=== PATIENT | female | born 1955 | race African-American/Black ===

== ENCOUNTER 2017-05-16 14:44 | Inpatient (IN) ==
[2017-05-16 17:38] LABS: Basophils % 0.4 % (0.0-0.8); Eosinophils % 0.3 % (0.00-10.9); Hematocrit 49.1 VOL% (35.7-47.0); Hemoglobin 17.5 GM/DL (12.0-16.0); Immature Granulocytes % 0.5 %; Immature Granulocytes Absolute 0.05 #; Lymphocytes # 1.1 10*3/uL (1.4-4.0); Lymphocytes % 11.3 % (21.3-54.2); Mean Corpuscular HGB Conc 35.6 GM/DL (32-36); Mean Corpuscular Hemoglobin 34 PG (27-34); Mean Corpuscular Volume 95.2 FL (87-102); Monocytes # 0.7 10*3/uL (0.11-0.8); Monocytes % 7.1 % (1.7-12.7); Neutrophils # 7.9 10*3/uL (1.4-7.4); Neutrophils % 80.4 % (38.7-73.9); Platelet Count 568 T/CUMM (130-400); Red Blood Count 5.16 MC/CUMM (3.8-5.5); Red Cell Distribution Width 14.4 % (9.3-17.3); White Blood Count 9.8 T/CUMM (4-12)
[2017-05-16 17:56] LABS: Apearance,Urine Slightly Hazy (Clear); Bacteria,Urine Many /HPF (Few); Bilirubin,Urine Negative (Negative); Blood, Urine Negative (Negative); Glucose,Urine (UA) Negative (Negative); Hyaline Casts,Urine 40 /LPF (0-3); Ketones,Urine 20 mg/dL (Negative); Nitrite,Urine Negative (Negative); Protein,Urine 30 MG/DL; RBC,Urine 1 /HPF (0-4); Squamous Epithelial Cell,Urine Occasional /HPF (0-10); Urine Color Yellow (Yellow); Urine Specific Gravity 1.012 (1.001-1.035); Urine Urobilinogen < 2.0 EU/DL (0.2-1.0); WBC,Urine 7 /HPF (0-6)
[2017-05-16 18:31] LABS: Calcium 9.2 MG/DL (8.5-10.1); Magnesium 1.7 MG/DL (1.8-2.4); Osmolality,Calculated 263.2 MOS/KG (273-304); Potassium 5.5 MMOL/L (3.5-5.1)
[2017-05-16] MEDS ORDERED: LABETALOL 20 MG/4 ML SYRINGE IV PRN (21:10)
[2017-05-16 22:06] LABS: Cholesterol 143 MG/DL (50-200); HDL Cholesterol 76 MG/DL (40-60); Risk Ratio 1.88; Triglycerides 73 MG/DL (2-150); Troponin I Only < 0.015 NG/ML (0.00-0.045); VLDL CHOLESTEROL 14.6 MG/DL
[2017-05-16 22:22] LABS: Barbiturates Screen,Urine Negative (Negative); Benzodiazepines Screen,Urine Negative (Negative); Cannabinoid Screen,Urine Negative (Negative); Opiate Screen,Urine Negative (Negative); Phencyclidine Screen,Urine Negative (Negative)
[2017-05-16] MEDS ORDERED: ALBUTEROL/IPRATROPIUM 3 ML NEB RESP TX PRN (22:33)
[2017-05-17] MEDS: SODIUM CHLORIDE 0.9% 1,000 ML IV SCH ×2 (01:19→15:03)
[2017-05-17] MEDS: LEVOTHYROXINE 50 MCG TABLET PO SCH (06:09)
[2017-05-17 06:31] LABS: Basophils % 0.6 % (0.0-0.8); Eosinophils # 0.1 10*3/uL (0.0-0.87); Eosinophils % 2.1 % (0.00-10.9); Hematocrit 42.7 VOL% (35.7-47.0); Hemoglobin 15.4 GM/DL (12.0-16.0); Immature Granulocytes % 0.5 %; Immature Granulocytes Absolute 0.03 #; Lymphocytes # 1.7 10*3/uL (1.4-4.0); Lymphocytes % 25.9 % (21.3-54.2); Mean Corpuscular HGB Conc 36.1 GM/DL (32-36); Mean Corpuscular Hemoglobin 34 PG (27-34); Mean Corpuscular Volume 95.3 FL (87-102); Mean Platelet Volume 10.1 FL (9.6-12.0); Monocytes # 0.6 10*3/uL (0.11-0.8); Monocytes % 8.3 % (1.7-12.7); Neutrophils # 4.1 10*3/uL (1.4-7.4); Neutrophils % 62.6 % (38.7-73.9); Platelet Count 592 T/CUMM (130-400); Red Blood Count 4.48 MC/CUMM (3.8-5.5); Red Cell Distribution Width 14.6 % (9.3-17.3); White Blood Count 6.6 T/CUMM (4-12)
[2017-05-17 06:58] LABS: Calcium 8.2 MG/DL (8.5-10.1); Magnesium 1.6 MG/DL (1.8-2.4); Osmolality,Calculated 272.5 MOS/KG (273-304); Potassium 4.2 MMOL/L (3.5-5.1)
[2017-05-17] MEDS: ASPIRIN EC 81 MG TABLET PO SCH (09:21)
[2017-05-17] MEDS: NICOTINE 14 MG/24 HR PATCH TRANSDERM SCH (09:22)
[2017-05-17] MEDS: cefTRIAXone 1,000 MG in SYRINGE 1 EACH IV SCH (09:27)
[2017-05-17] MEDS ORDERED: MAGNESIUM SULF RIDER 4 GM in PREMIX 1 EACH IV PRN (12:16)
[2017-05-17] MEDS ORDERED: MAGNESIUM SULF RIDER 2 GM in PREMIX 1 EACH IV PRN (12:16)
[2017-05-17] MEDS: APIXABAN 2.5 MG TABLET PO SCH ×2 (15:05→22:16)
[2017-05-17] MEDS: LISINOPRIL 5 MG TABLET PO SCH (15:11)
[2017-05-17] MEDS: ACETAMINOPHEN 325 MG TABLET PO PRN (15:20)
[2017-05-17] MEDS ORDERED: APIXABAN 2.5 MG TABLET PO SCH (21:00)
[2017-05-17] MEDS ORDERED: ATORVASTATIN 10 MG TABLET PO SCH (21:00)
[2017-05-18] MEDS: ACETAMINOPHEN 325 MG TABLET PO PRN ×2 (04:01→08:54)
[2017-05-18] MEDS: SODIUM CHLORIDE 0.9% 1,000 ML IV SCH (04:02)
[2017-05-18] MEDS: LEVOTHYROXINE 50 MCG TABLET PO SCH (06:16)
[2017-05-18 08:43] VITALS: BP 139/89
[2017-05-18] MEDS: ASPIRIN EC 81 MG TABLET PO SCH (08:53)
[2017-05-18] MEDS: LISINOPRIL 5 MG TABLET PO SCH (08:53)
[2017-05-18] MEDS: NICOTINE 14 MG/24 HR PATCH TRANSDERM SCH (08:54)
[2017-05-18] MEDS: APIXABAN 2.5 MG TABLET PO SCH (08:54)
[2017-05-18] MEDS: cefTRIAXone 1,000 MG in SYRINGE 1 EACH IV SCH (08:55)
== END 2017-05-18 10:55 | disposition home or self-care (01) | DRG 65 ==
LOC: N.ED 14:44 → N.EDINP 21:10 → SUATTDRO 21:10 → N.TELEN 21:45
PROVIDERS: ADMIT Family Medicine; ATTEND Internal Medicine Infectious Disease

== ENCOUNTER 2017-05-26 12:10 | Inpatient (IN) ==
[2017-05-26] MEDS ORDERED: ONDANSETRON 4 MG/2 ML VIAL IV PRN (13:29)
[2017-05-26] MEDS: CARVEDILOL 12.5 MG TABLET PO SCH ×2 (14:38→21:38)
[2017-05-26] MEDS: methylPREDNISolone SOD SUC 125 MG/2 ML VIAL IV SCH ×2 (14:38→21:37)
[2017-05-26] MEDS: PANTOPRAZOLE 40 MG TABLET PO SCH (14:38)
[2017-05-26] MEDS: SODIUM CHLORIDE 0.45% 1,000 ML IV SCH (14:56)
[2017-05-26 15:12] LABS: Albumin 4.1 G/DL (3.4-5.0); Bilirubin,Total 0.8 MG/DL (0.2-1.0); Calcium 9.2 MG/DL (8.5-10.1); Osmolality,Calculated 271.5 MOS/KG (273-304); Potassium 4.2 MMOL/L (3.5-5.1); Total Protein 6.9 G/DL (6.4-8.3)
[2017-05-26 16:05] LABS: Basophils % 0.3 % (0.0-0.8); Eosinophils # 0.1 10*3/uL (0.0-0.87); Eosinophils % 2.3 % (0.00-10.9); Hematocrit 42.4 VOL% (35.7-47.0); Hemoglobin 15.1 GM/DL (12.0-16.0); Immature Granulocytes % 0.6 %; Immature Granulocytes Absolute 0.04 #; Lymphocytes # 1.3 10*3/uL (1.4-4.0); Lymphocytes % 20.4 % (21.3-54.2); Mean Corpuscular HGB Conc 35.6 GM/DL (32-36); Mean Corpuscular Hemoglobin 34 PG (27-34); Mean Corpuscular Volume 95.3 FL (87-102); Mean Platelet Volume 10.6 FL (9.6-12.0); Monocytes # 0.4 10*3/uL (0.11-0.8); Neutrophils # 4.4 10*3/uL (1.4-7.4); Neutrophils % 70.4 % (38.7-73.9); Platelet Count 376 T/CUMM (130-400); Red Blood Count 4.45 MC/CUMM (3.8-5.5); Red Cell Distribution Width 14.4 % (9.3-17.3); White Blood Count 6.2 T/CUMM (4-12)
[2017-05-26 16:28] LABS: Platelet Estimate Normal
[2017-05-26] MEDS ORDERED: diphenhydrAMINE 50 MG/1 ML VIAL IV SCH (18:00)
[2017-05-26] MEDS: MOISTURIZING CREAM (EUCERIN) 113 GM JAR TOP SCH ×2 (18:37→21:38)
[2017-05-26] MEDS: ACETAMINOPHEN 325 MG TABLET PO PRN (21:38)
[2017-05-26] MEDS: FEXOFENADINE 60 MG TABLET PO SCH (21:38)
[2017-05-27 03:41] LABS: Apearance,Urine Slightly Hazy (Clear); Bilirubin,Urine Negative (Negative); Blood, Urine Negative (Negative); Glucose,Urine (UA) Negative (Negative); Ketones,Urine Negative (Negative); Mucus,Urine Occasional /LPF (Occasional); Nitrite,Urine Negative (Negative); Protein,Urine Negative; Squamous Epithelial Cell,Urine Occasional /HPF (0-10); Urine Color Yellow (Yellow); Urine Specific Gravity 1.023 (1.001-1.035); Urine Urobilinogen < 2.0 EU/DL (0.2-1.0); WBC,Urine 1 /HPF (0-6)
[2017-05-27] MEDS: methylPREDNISolone SOD SUC 125 MG/2 ML VIAL IV SCH ×3 (05:24→16:55)
[2017-05-27 05:25] LABS: Basophils % 0.1 % (0.0-0.8); Hematocrit 40.2 VOL% (35.7-47.0); Hemoglobin 14.3 GM/DL (12.0-16.0); Immature Granulocytes % 0.5 %; Immature Granulocytes Absolute 0.05 #; Lymphocytes # 1.1 10*3/uL (1.4-4.0); Lymphocytes % 11.4 % (21.3-54.2); Mean Corpuscular HGB Conc 35.6 GM/DL (32-36); Mean Corpuscular Hemoglobin 34 PG (27-34); Mean Corpuscular Volume 94.6 FL (87-102); Mean Platelet Volume 9.7 FL (9.6-12.0); Monocytes # 0.1 10*3/uL (0.11-0.8); Monocytes % 0.9 % (1.7-12.7); Neutrophils % 87.1 % (38.7-73.9); Platelet Count 872 T/CUMM (130-400); Red Blood Count 4.25 MC/CUMM (3.8-5.5); Red Cell Distribution Width 14.5 % (9.3-17.3); White Blood Count 9.2 T/CUMM (4-12)
[2017-05-27 05:56] LABS: Albumin 3.6 G/DL (3.4-5.0); Calcium 8.4 MG/DL (8.5-10.1); Osmolality,Calculated 273.7 MOS/KG (273-304); Phosphorous 4.1 MG/DL (2.5-4.9); Potassium 4.2 MMOL/L (3.5-5.1)
[2017-05-27 07:12] LABS: Anti SS-A Antibodies < 16 EU/ML; Anti SS-B Antibodies < 16 EU/ML
[2017-05-27] MEDS: LEVOTHYROXINE 50 MCG TABLET PO SCH (07:22)
[2017-05-27 08:48] LABS: Hypochromasia 1+; Lymphocytes 7 % (20-55); Segmented Neutrophils 92 % (50-85); Total Cells Counted 100
[2017-05-27 08:49] LABS: Platelet Estimate Increased
[2017-05-27] MEDS: APIXABAN 2.5 MG TABLET PO SCH ×2 (09:04→20:52)
[2017-05-27] MEDS: MOISTURIZING CREAM (EUCERIN) 113 GM JAR TOP SCH ×3 (09:04→20:55)
[2017-05-27] MEDS: CARVEDILOL 12.5 MG TABLET PO SCH ×2 (09:04→20:53)
[2017-05-27] MEDS: FEXOFENADINE 60 MG TABLET PO SCH ×2 (09:04→20:51)
[2017-05-27] MEDS: ASPIRIN EC 81 MG TABLET PO SCH (09:04)
[2017-05-27] MEDS: PANTOPRAZOLE 40 MG TABLET PO SCH (09:04)
[2017-05-27] MEDS: ACETAMINOPHEN 325 MG TABLET PO PRN ×2 (09:32→20:51)
[2017-05-27] MEDS: SODIUM CHLORIDE 0.45% 1,000 ML IV SCH (14:51)
[2017-05-28] MEDS: methylPREDNISolone SOD SUC 125 MG/2 ML VIAL IV SCH ×3 (00:08→16:05)
[2017-05-28 03:44] LABS: Collection Time,Urine 24 HOURS; Total Protein 24 Hr Ur Result 104 MG/24HR (0-149.1); Total Volume,Urine 800 ML (400-2000)
[2017-05-28 04:00] LABS: Creatinine 24 Hr Urine Result 0.6 G/24HR (0.60-1.80)
[2017-05-28] MEDS: LEVOTHYROXINE 50 MCG TABLET PO SCH (07:05)
[2017-05-28 07:33] LABS: Basophils % 0.1 % (0.0-0.8); Hematocrit 40.1 VOL% (35.7-47.0); Hemoglobin 14.5 GM/DL (12.0-16.0); Immature Granulocytes % 1.5 %; Lymphocytes # 0.9 10*3/uL (1.4-4.0); Lymphocytes % 4.5 % (21.3-54.2); Mean Corpuscular HGB Conc 36.2 GM/DL (32-36); Mean Corpuscular Hemoglobin 34 PG (27-34); Mean Corpuscular Volume 95.2 FL (87-102); Mean Platelet Volume 9.8 FL (9.6-12.0); Monocytes # 0.3 10*3/uL (0.11-0.8); Monocytes % 1.6 % (1.7-12.7); Neutrophils # 18.1 10*3/uL (1.4-7.4); Neutrophils % 92.3 % (38.7-73.9); Platelet Count 903 T/CUMM (130-400); Red Blood Count 4.21 MC/CUMM (3.8-5.5); Red Cell Distribution Width 14.6 % (9.3-17.3); White Blood Count 19.6 T/CUMM (4-12)
[2017-05-28 07:56] LABS: Hypochromasia 1+; Lymphocytes 3 % (20-55); Segmented Neutrophils 95 % (50-85); Total Cells Counted 100
[2017-05-28 07:57] LABS: Platelet Estimate Increased
[2017-05-28] MEDS: PANTOPRAZOLE 40 MG TABLET PO SCH (09:52)
[2017-05-28] MEDS: ASPIRIN EC 81 MG TABLET PO SCH (09:52)
[2017-05-28] MEDS: FEXOFENADINE 60 MG TABLET PO SCH ×2 (09:52→20:21)
[2017-05-28] MEDS: CARVEDILOL 12.5 MG TABLET PO SCH ×2 (09:52→20:21)
[2017-05-28] MEDS: MOISTURIZING CREAM (EUCERIN) 113 GM JAR TOP SCH ×3 (09:52→20:56)
[2017-05-28] MEDS: APIXABAN 2.5 MG TABLET PO SCH ×2 (09:52→20:21)
[2017-05-28] MEDS: ACETAMINOPHEN 325 MG TABLET PO PRN (13:41)
[2017-05-28] MEDS: SODIUM CHLORIDE 0.45% 1,000 ML IV SCH (16:06)
[2017-05-29] MEDS: LEVOTHYROXINE 50 MCG TABLET PO SCH (06:25)
[2017-05-29 08:39] LABS: Basophils % 0.1 % (0.0-0.8); Eosinophils % 0.1 % (0.00-10.9); Hematocrit 40.2 VOL% (35.7-47.0); Hemoglobin 14.4 GM/DL (12.0-16.0); Immature Granulocytes % 1.5 %; Immature Granulocytes Absolute 0.27 #; Lymphocytes # 1.2 10*3/uL (1.4-4.0); Mean Corpuscular HGB Conc 35.8 GM/DL (32-36); Mean Corpuscular Hemoglobin 34 PG (27-34); Mean Corpuscular Volume 94.8 FL (87-102); Mean Platelet Volume 9.6 FL (9.6-12.0); Monocytes % 5.6 % (1.7-12.7); Neutrophils # 15.1 10*3/uL (1.4-7.4); Neutrophils % 85.7 % (38.7-73.9); Platelet Count 899 T/CUMM (130-400); Red Blood Count 4.24 MC/CUMM (3.8-5.5); Red Cell Distribution Width 14.5 % (9.3-17.3); White Blood Count 17.7 T/CUMM (4-12)
[2017-05-29] MEDS: CARVEDILOL 12.5 MG TABLET PO SCH ×2 (08:45→21:42)
[2017-05-29] MEDS: FEXOFENADINE 60 MG TABLET PO SCH ×2 (08:45→21:42)
[2017-05-29] MEDS: ASPIRIN EC 81 MG TABLET PO SCH (08:45)
[2017-05-29] MEDS: PANTOPRAZOLE 40 MG TABLET PO SCH (08:45)
[2017-05-29] MEDS: predniSONE 20 MG TABLET PO SCH (08:45)
[2017-05-29] MEDS: APIXABAN 2.5 MG TABLET PO SCH ×2 (08:45→21:42)
[2017-05-29] MEDS: MOISTURIZING CREAM (EUCERIN) 113 GM JAR TOP SCH ×3 (08:46→21:42)
[2017-05-29] MEDS: ACETAMINOPHEN 325 MG TABLET PO PRN (17:11)
[2017-05-29] MEDS: SODIUM CHLORIDE 0.45% 1,000 ML IV SCH (18:01)
[2017-05-30 04:42] LABS: Basophils % 0.2 % (0.0-0.8); Eosinophils % 0.1 % (0.00-10.9); Hematocrit 38.5 VOL% (35.7-47.0); Hemoglobin 13.5 GM/DL (12.0-16.0); Immature Granulocytes % 1.1 %; Immature Granulocytes Absolute 0.14 #; Lymphocytes # 1.8 10*3/uL (1.4-4.0); Lymphocytes % 14.7 % (21.3-54.2); Mean Corpuscular HGB Conc 35.1 GM/DL (32-36); Mean Corpuscular Hemoglobin 34 PG (27-34); Mean Corpuscular Volume 95.8 FL (87-102); Mean Platelet Volume 9.7 FL (9.6-12.0); Monocytes % 8.1 % (1.7-12.7); Neutrophils # 9.3 10*3/uL (1.4-7.4); Neutrophils % 75.8 % (38.7-73.9); Platelet Count 859 T/CUMM (130-400); Red Blood Count 4.02 MC/CUMM (3.8-5.5); Red Cell Distribution Width 14.6 % (9.3-17.3); White Blood Count 12.3 T/CUMM (4-12)
[2017-05-30] MEDS: LEVOTHYROXINE 50 MCG TABLET PO SCH (06:43)
[2017-05-30] MEDS: CARVEDILOL 12.5 MG TABLET PO SCH (09:47)
[2017-05-30] MEDS: FEXOFENADINE 60 MG TABLET PO SCH (09:47)
[2017-05-30] MEDS: APIXABAN 2.5 MG TABLET PO SCH (09:48)
[2017-05-30] MEDS: predniSONE 20 MG TABLET PO SCH (09:48)
[2017-05-30] MEDS: PANTOPRAZOLE 40 MG TABLET PO SCH (09:49)
[2017-05-30] MEDS: ASPIRIN EC 81 MG TABLET PO SCH (09:49)
[2017-05-30] MEDS: MOISTURIZING CREAM (EUCERIN) 113 GM JAR TOP SCH (09:50)
[2017-05-30 11:46] VITALS: BP 155/86
[2017-05-31 10:31] LABS: CATU Epinephrine Frac 1.5 mcg/24 h (<21)
[2017-05-31 15:21] LABS: Normetanephrine, U 115 mcg/24 h; Total Metanephrines, U 151 mcg/24 h; Urine Volume 800 mL
== END 2017-05-30 13:00 | disposition home or self-care (01) | DRG 916 ==
LOC: N.5E 12:27
PROVIDERS: ADMIT Internal Medicine Nephrology; ATTEND Internal Medicine Nephrology